=== PATIENT | male | born 1985 | race Asian ===

== ENCOUNTER 2020-05-09 17:29 | Emergency (ER) | payer SELFPAY ==
[~2020-05-09] VITALS: Ht 177.8 cm; Wt 52.6 kg
[2020-05-09 17:33] VITALS: BP_SYST 107
[2020-05-09 17:48] VITALS: BP_SYST 107
== END 2020-05-09 17:49 ==
LOC: SED 17:29
DX: Z02.89 Encounter for other administrative examinations (principal); R10.32 Left lower quadrant pain; Z88.8 Allergy status to other drugs, medicaments and biological substances
CPT/HCPCS: 99283